=== PATIENT | male | born 1970 | race Caucasian/White ===

== ENCOUNTER → 2019-01-04 08:25 | Day surgery (SDC) | payer BC ==
[~2019-01-04 08:25] MED LIST: Atracurium* 10 MG/ML 10 ML VIAL ONE; Buffered Lidocaine 1% SYRIN* 1 ML/SYRINGE INTRADERM ONE; Bupivacaine 0.25% EPI 200,000* 30 ML SDV ONE; Bupivacaine 0.25% W/EPI* 10 ML SDV ONE; Clindamycin 900 MG/D5W BAG(*) 900 MG/50 ML BAG IVPB ONE; Dexamethasone IV* 4 MG/ML 1 ML (4 MG) IV SLOW PU ONE; Dexamethasone IV* 4 MG/ML 1 ML (4 MG) ONE; DiMENhydriNATE IV* 50 MG/ML VIAL IV PUSH PRN; EPINEPHRINE 1 MG/ML 1 ML VIAL ONE; Famotidine IV* 10 MG/ML 2 ML (20 mg) ONE; HYDROmorphone INJ1* 1 MG/ML SYRINGE IV PRN; Lactated Ringers 1000 ML Bag* 1,000 ML IV SCH; Midazolam* 1 MG/ML 5 ML VIAL (5 MG) ONE; Naloxone* 0.4 MG/ML 1 ML VIAL IV PRN; Ondansetron INJ* 2 MG/ML VIAL IV PRN; Ondansetron INJ* 2 MG/ML VIAL ONE; Propofol* 10 MG/ML 20 ML BTL ONE; ROPIVACAINE 5 MG/ML 30 ML BTL (0.5%) ONE; Scopolamine 1.5 mg* PATCH TRANSDERM PRN; fentaNYL* 50 MCG/ML 2 ML VIAL (100 MCG VIAL) IV PRN; fentaNYL* 50 MCG/ML 2 ML VIAL (100 MCG VIAL) ONE; oxyCODONE/Acetamin 5/325 MG* TAB PO PRN
[2019-01-04 14:19] VITALS: BP 114/85
--- NOTE | 2019-01-06 03:00 | OP ---
OPERATIVE NOTE: DATE OF OPERATION: 01/04/19 DATE OF : 72 SURGEON: Dr. Yuri Valdivia. HOME HEALTH REGISTERED NURSE: DAI Amor A physician property management assistant was required for the length of the procedure for assistance with patient positi oning, retraction, and closure. ANESTHESIOLOGIST: Dr. Preston. ANESTHESIA: General anesthesia, regional interscalene block anesthesia, local anesthesia using Damián ine 0.25% with epinephrine 10 cc. PRE-OP DIAGNOSES: 1. Right shoulder rotator cuff tendon tear, supraspinatus, full thickness with retraction. 2. Right shoulder acromioclavicular joint osteoarthritis. 3. Right shoulder subacromial impingement and bursitis. 4. Right shoulder superior labral tear, posterior labral tear. POST-OP DIAGNOSES: 1. Right shoulder rotator cuff tendon tear, supraspinatus, full thickness with retraction. 2. Right shoulder acromioclavicular joint osteoarthritis. 3. Right shoulder subacromial impingement and bursitis. 4. Right shoulder superior labral tear and proximal biceps tendon tendinosis. 5. Right shoulder arthrofibrosis. OPERATIVE PROCEDURE: 1. Right shoulder manipulation under anesthesia. 2. Right shoulder arthroscopic rotator cuff tendon repair, supraspinatus, using double row repair. 3. Right shoulder arthroscopic subacromial decompression. 4. Right shoulder arthroscopic distal clavicle resection. 5. Right shoulder open proximal biceps tenodesis, subpectoral. ANTIBIOTICS: Clindamycin 900 mg IV. IV FLUIDS: See Anesthesia note. OTHY-KE-MNUH TIME: 111 minutes. SPECIMEN: None. IMPLANTS: Arthrex 5.5-mm suture anchors x2. The first was loaded with two fiber tapes, the second w as loaded with three FiberWire suture pairs, two of which I used. I then used an Arthrex SwiveLock a nchor as my lateral row fixation. I also used an Arthrex proximal biceps tenodesis button. ESTIMATED BLOOD LOSS: Minimal. COMPLICATIONS: None. 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 MRI showed full- thickness rotator cuff tendon tear a long with the other pathology mentioned above. Discussed surgery. Discussed risks and potential comp lications. The patient opted to move forward. DESCRIPTION OF PROCEDURE: In preoperative holding, the patient signed a written consent. Operative extremity was marked in preoperative holding. The patient had a regional interscalene block performe d by Dr. Preston. The patient was taken back to the operating room and placed supine on the operati ng room table. Sedated and intubated. The patient was turned into a lateral decubitus position with the right shoulder up. Axillary roll. All bony prominences padded. Beanbag was hardened. Longitudinal traction with 15 pounds in the appr opriate amount of shoulder forward flexion and abduction. Prior to the the patient being converted to lateral decubitus, I performed a mini time-out and then p erformed an examination under anesthesia. The patient's forward flexion was only 170 degrees. Exter nal rotation was 90 and internal rotation 70 degrees. After having performed a mini time-out, I perf ormed a manipulation under anesthesia using safe technique. I felt crackling about the shoulder repr esenting capsular tearing and I was able to get the patient into 180 degrees forward flexion. Only a fter this manipulation under anesthesia did I convert the patient into the lateral decubitus position . In the lateral decubitus position, the patient was prepped and draped. Surgical time-out, formal was performed. I entered 30 cc of normal saline into the glenohumeral joint from posterior. I made a posterior jonah ohumeral joint portal using standard technique. Started a diagnostic arthroscopy. No loose bodies. No subscapularis tendon tear. Positive supraspinatus tendon tear. Some hyperemia along the biceps tendon near its origin. I made an anterior glenohumeral joint portal under direct visualization. I probed the superior labru m. There was an unstable superior labrum tear. There was not a posterior labrum tear. I entered my arthroscopic scissors and cut the long head biceps near its origin. Removed instruments and fluid and established anterior and posterior subacromial portals. I then est ablished lateral and posterolateral portals under direct visualization. I eventually established an anterolateral portal. In the subacromial compartment, I performed bursectomy of the subacromial inflamed bursitic tissue wi th an arthroscopic shaver. Identified the rotator cuff tendon tear, full-thickness supraspinatus. T here was not a significance of infraspinatus tendon part of this tear. I prepared the humeral head footprint with a VAPR and lan. I used a rotator cuff grasper to show th at the repair would be feasible and I should be able to get the tendon nicely to bone. Through superolateral poke hole incisions, I placed two medial suture anchors. One had two suture ta pes, the other had three fiber wires. I next used an antegrade suture passer to place horizontal mat tress stitches in the tendon. I passed all sutures before tying any of them. The stitches brought t endon down nicely to bone. I then placed a suture from these medial row stitches and a lateral row anchor. I removed one of the 3 sutures from the posterior medial row anchor because it was not necessary to use it. After the lateral row anchor was placed, the repair was excellent. There was just the tiniest area o f dog ear, so I took one suture from the SwiveLock lateral row anchor and I placed a simple stitch us ing an antegrade suture passer. Repair looked excellent. Excellent probing, excellent visualization. Fully covered humeral head. I next moved to the acromion. I smoothed out, flattened out the undersurface of the anterior aspect of the acromion using an arthroscopic lan. I next moved to the AC joint. I debrided bursitic synovitic tissue with the cautery device and then I removed 8 mm of the distal end of the clavicle with an arthroscopic lan. Removed instruments and fluid from subacromial space. I took the arm out of traction and rotated the patient slightly to a hybrid supine lateral decubitus position. I made open incision over the anteromedial upper arm. I dissected down to the bicipital groove. Eileen marcelino retractors. Pulled long head biceps tendon out of the wound. Placed 3 stitches with a FiberLoop suture. Loaded button. I had placed a Beath pin unicortically through the proximal humerus. I nex t passed the button, flipped the button, and tightened the tendon to bone. Tied the knot. Used a fr ee needle to place one more stitch. Removed excess suture and tendon. Irrigation. Closure of the encinas bcutaneous tissue with buried simple stitches using Vicryl 3-0 suture. Closure of the subcuticular l bailee with a running stitch using Monocryl 3-0 suture. Mastisol, Steri-Strips, 4x4, Tegaderm. 10 cc of local anesthesia injected adjacent to the skin incision. Arthroscopy skin incisions had been closed with [id number] in 12 stitches using nylon 3-0 suture . I placed Xeroform over these followed by 4x4s, ABDs, and foam tape. Sling and abduction pillow. The patient was awakened, extubated, and transferred to the PACU. DISPOSITION: Sling at all times. Percocet as needed for pain control and Keflex for 5 days for infe ction prophylaxis. No physical therapy. The patient will follow up with me 10 to 14 days postoperat char in clinic. [id number]/[facility] #: [id number]
== END | disposition home or self-care (01) ==
LOC: OR 08:25
PROVIDERS: ATTEND Orthopaedic Surgery
DX: S46.011A Strain of muscle(s) and tendon(s) of the rotator cuff of right shoulder, initial encounter (principal); S43.431A Superior glenoid labrum lesion of right shoulder, initial encounter; M19.011 Primary osteoarthritis, right shoulder; M75.41 Impingement syndrome of right shoulder; M75.51 Bursitis of right shoulder; M75.21 Bicipital tendinitis, right shoulder; X58.XXXA Exposure to other specified factors, initial encounter; Y93.64 Activity, baseball; Y92.320 Baseball field as the place of occurrence of the external cause; G89.18 Other acute postprocedural pain; I10 Essential (primary) hypertension; K21.9 Gastro-esophageal reflux disease without esophagitis
CPT/HCPCS: C1713; C1776; J1100; J2250; J2405; J2704; J2795; J3010